=== PATIENT | male | born 1975 | race Caucasian/White ===

== ENCOUNTER 2024-04-03 10:57 | Emergency (ER) | payer SELFPAY ==
[~2024-04-03] VITALS: Ht 172.7 cm; Wt 91.0 kg
[2024-04-03 11:05] VITALS: BP 130/80; PULSE 100; RESP 18; TEMP 98.3; O2SAT 100
== END 2024-04-03 12:04 | disposition left against medical advice (07) ==
LOC: ER 12:02
DX: F10.129 Alcohol abuse with intoxication, unspecified (principal); Y90.9 Presence of alcohol in blood, level not specified
CPT/HCPCS: 99283

== ENCOUNTER 2024-10-12 08:11 | Emergency (ER) | payer SELFPAY ==
[~2024-10-12] VITALS: Ht 165.1 cm; Wt 73.0 kg
[2024-10-12 08:12] VITALS: TEMP 97.1; O2SAT 98
[2024-10-12] MEDS ORDERED: IBUP-2029 MT (08:31)
[2024-10-12 08:44] VITALS: BP 121/83; PULSE 102; RESP 16
[2024-10-12] MEDS: IBUPROFEN 600MG TABLET PO ONE (08:44)
== END 2024-10-12 08:51 | disposition home or self-care (01) ==
LOC: ER 08:11
DX: S20.229A Contusion of unspecified back wall of thorax, initial encounter (principal); M54.9 Dorsalgia, unspecified; Y08.89XA Assault by other specified means, initial encounter; Y93.89 Activity, other specified; Y92.89 Other specified places as the place of occurrence of the external cause; Y99.8 Other external cause status
CPT/HCPCS: 93005; 99283